=== PATIENT | male | born 1955 | race Hispanic/Latino ===

== ENCOUNTER 2018-09-30 14:10 | Emergency (ER) | payer BC ==
[2018-09-30 14:24] VITALS: TEMP 98.4
--- NOTE | 2018-09-30 15:20 | ED.PDOC ---
History of Present Illness - General Chief Complaint: Abdominal Pain Stated Complaint: abdominal pain,bloating Time Seen by Provider: 09/30/18 15:08 Source: patient Exam Limitations: no limitations - History of Present Illness Initial Comments: Patient presents with abdominal pain and bloating for about 7 months. It is burning in nature but also feels like "everything". It is bilateral upper quadrants, constant, intermittent in intensity, no previous episodes before the last 7 months. He has not noticed a correlation with eating or drinking. It gets a little better after a bowel movement or passing gas. He has been regular with stools. He also feels increasing bloating that is painful but also gets better after passing gas. No N/V/D/F. He has had lumbar surgery but no abdominal surgeries. No other complaints. Timing/Duration: other - 7 months Severity: moderate Improving Factors: other - see HPI Worsening Factors: other - see HPI Associated Symptoms: denies symptoms Allergies/Adverse Reactions: Allergies NO KNOWN ALLERGY Allergy (Verified 09/30/18 14:24) Home Medications: Ambulatory Orders NK 09/30/18 Review of Systems - Review of Systems Constitutional: States: no symptoms reported EENTM: States: no symptoms reported Respiratory: States: no symptoms reported Cardiology: States: no symptoms reported Gastrointestinal/Abdominal: States: see HPI Genitourinary: States: no symptoms reported Musculoskeletal: States: no symptoms reported Skin: States: no symptoms reported Neurological: States: no symptoms reported Endocrine: States: no symptoms reported Hematologic/Lymphatic: States: no symptoms reported Past Medical History (General) - Patient Medical History Hx Stroke: No Hx Congestive Heart Failure: No Hx Hypertension: Yes Hx Diabetes: No - Vaccination History Hx Influenza Vaccination: No Hx Pneumococcal Vaccination: No - Social History Hx Tobacco Use: Yes Family Medical History - Family History Father Family History: Unknown Living Status: Unknown Physical Exam - Physical Exam General Appearance: Alert Eye Exam: bilateral scleral icterus Ears, Nose, Throat: normal ENT inspection Neck: non-tender, full range of motion, supple Respiratory: lungs clear, normal breath sounds Cardiovascular/Chest: normal peripheral pulses, regular rate, rhythm, no edema Gastrointestinal/Abdominal: normal bowel sounds, non tender, soft, other - distended with tympany, no shifting dullness Back Exam: normal inspection, no CVA tenderness Extremity: normal inspection, no pedal edema Neurologic: no motor/sensory deficits, alert, normal mood/affect, oriented x 3 Skin Exam: normal color Lymphatic: no adenopathy Progress - Progress Progress: 09/30/18 17:13 Laboratory Tests 09/30/18 09/30/18 09/30/18 14:37 14:37 14:47 WBC 9.4 RBC 5.34 Hgb 16.5 Hct 48.5 MCV 90.9 MCH 30.9 MCHC 34.0 RDW 14.3 Plt Count 213 MPV 8.3 Absolute Neuts (auto) 7.60 H Absolute Lymphs (auto) 1.10 Absolute Monos (auto) 0.60 Absolute Eos (auto) 0.00 Absolute Basos (auto) 0.10 Neutrophils % 80.7 H Lymphocytes % 12.1 L Monocytes % 5.9 Eosinophils % 0.4 L Basophils % 0.9 Sodium 138 Potassium 3.3 L Chloride 98 L Carbon Dioxide 29 Anion Gap 14.3 BUN 16 Creatinine 1.26 BUN/Creatinine Ratio 12.7 Random Glucose 136 H Serum Osmolality 278.9 Calcium 9.6 Total Bilirubin 3.7 H* AST 32 ALT 22 Alkaline Phosphatase 63 Serum Total Protein 7.9 Albumin 4.7 Globulin 3.2 Albumin/Globulin Ratio 1.5 Lipase 24 Urine Color Yellow Urine Appearance Clear Urine pH 6.0 Ur Specific Sp[place]geon 1.025 Urine Protein >=300 H Urine Glucose (UA) Negative Urine Ketones Negative Urine Blood Small H Urine Nitrite Negative Urine Bilirubin Negative Urine Urobilinogen 0.2 Ur Leukocyte Esterase Negative Urine RBC 0-1 Urine WBC 0 Ur Epithelial Cells [address] showed multiple hepatic cysts and thickened gallbladder wall. There was a possible mass at the gallbladder outlet. Patient had a negative Cardona's sign. I spoke with Dr. Raymundo at [facility] who recommended an appointment with him tomorrow at 13:00. E.R. warnings given. Care instructions given. Ques tions were elicited and answered. The patient voiced understanding and agreement with the plan. Departure - Departure Clinical Impression: Hyperbilirubinemia Disposition: Discharge to Home or Self Care Condition: Good Departure Forms: ED Discharge - Pt. Copy, Patient Portal Self Enrollment Instructions: DI for Abdominal Pain-Adult Diet: low fat, low cholesterol Activity: increase activity as tolerated Referrals: Alden Vega MD [Primary Care Provider] - 1-2 Weeks Home Medications: Ambulatory Orders NK 09/30/18 Additional Instructions: Ibuprofen for the pain. Do not eat after midnight in case Dr. Raymundo wants to do any particular tests. Return to the E.R. immediately for increasing pain , nausea, vomiting, or temperature above 100.4. See Dr. Raymundo at 1:00 p.m. tomorrow at his office. His office number is [phone].
--- NOTE | 2018-09-30 16:28 | CT ---
EXAM DESCRIPTION: CT ABDOMEN AND PELVIS WITH CONTRAST CLINICAL HISTORY: bloating, ab pain, hyperbilirubinemia COMPARISON: None Available. TECHNIQUE: CT of the abdomen and pelvis are performed during IV bolus administration of 100 mL of Isovue 300. Oral contrast media was not administered. This exam was performed according to our departmental dose-optimization program, which includes automated exposure control, adjustment of the mA and/or kV according to patient size and/or use of iterative reconstruction technique. FINDINGS: The lung bases are clear with no significant pleural effusions and moderate cardiomegaly noted with very small pericardial effusion effusion evident. Below the diaphragm mild abdominal ascites anterior to the liver is noted with multiple mall to moderately large approximate six or 7 cm benign appearing hepatic cysts with hepatomegaly noted. Small amount of inflammation or ascites in the region of the gallbladder fossa with slight enhancement and apparent thickening of the gallbladder wall is present with questionable small mass or ill-defined stone in the fundus of the gallbladder. Possibility of a septated gallbladder fundus would be a consideration. Further evaluation with right upper quadrant sonography is recommended. Additional mild ascites along the right lateral inferior margin of the liver is noted. Spleen is upper normal in size without focal mass. Pancreas normally enhances without mass. Common hepatic and common bile duct appear normal in caliber without a distinct stones are noted. Kidneys cortically enhance without solid mass or cyst or obstruction. The aorta and vena cava are unremarkable with numerous small normal to upper normal lymph nodes noted. No intrarenal calculi are noted and the course and caliber of each collecting system is normal. Small and large bowel caliber is normal. Minimal ascites in the left paracolic gutter is noted with no significant fluid in the cul-de-sac of the pelvis. Small normal appendix in the right lower quadrant is evident. Significant diverticulosis of the sigmoid colon is not apparent. Within the pelvis small prostatic calculi are noted in the bladder is incompletely distended. There is a small somewhat linear calcification in the left posterior bladder near the ureterovesical junction but no evidence of proximal obstruction. A nonobstructing UVJ or bladder calculus is suspected. The anterior abdominal wall is moderately edematous but intact. No inguinal hernia is noted. Lumbar spine is unremarkable without destructive changes. IMPRESSION: 1. Clear lung bases with rather marked cardiomegaly and very small pericardial effusion. 2. Hepatomegaly with numerous small to moderately large benign appearing hepatic cysts. Mild ascites is present in the upper abdomen and left paracolic gutter and suggests an element of significant hepatic dysfunction 3. Abnormal appearing gallbladder with gallbladder wall enhancement and mild thickening and ascites or inflammation in the gallbladder fossa with normal ductal system. A septated gallbladder fundus and/or small filling defect or mass near the gallbladder fundus is suspected. Correlation with right upper quadrant sonography recommended 4. Normal-appearing kidneys and collecting systems with either a tiny bladder calculus or nonobstructing left ureterovesical junction calculus without proximal hydroureter on the left no intrarenal calculi noted. Electronically signed by: Jose Vega MD 09/30/2018 4:27 PM [facility]
[2018-09-30 17:27] VITALS: BP 193/145; O2SAT 95
== END 2018-09-30 17:27 | disposition home or self-care (01) ==
LOC: ER 14:10
DX: E80.6 Other disorders of bilirubin metabolism (principal); R10.9 Unspecified abdominal pain; K76.89 Other specified diseases of liver; I10 Essential (primary) hypertension; Z87.891 Personal history of nicotine dependence

== ENCOUNTER → 2018-11-24 | Outpatient (CLI) | payer BC | LOC: GMAJ 11:00 | PROVIDERS: ATTEND Family Medicine | DX: N40.1 Benign prostatic hyperplasia with lower urinary tract symptoms (principal) ==

== ENCOUNTER → 2019-03-30 | Outpatient (CLI) | payer BC | LOC: GMAJ 10:42 | PROVIDERS: ATTEND Family Medicine | DX: N40.1 Benign prostatic hyperplasia with lower urinary tract symptoms (principal); I10 Essential (primary) hypertension; E78.2 Mixed hyperlipidemia ==

== ENCOUNTER → 2020-04-19 | Outpatient (CLI) | payer BC | LOC: GMAJ 10:35 | PROVIDERS: ATTEND Family Medicine | DX: N40.1 Benign prostatic hyperplasia with lower urinary tract symptoms (principal) ==